=== PATIENT | male | born 1965 | race Caucasian/White ===

== ENCOUNTER 2021-09-28 12:45 | Outpatient (CLI) | payer OTHER | END 2021-09-28 12:46 | disposition home or self-care (01) | LOC: NUCLEAR 12:45 → EDSEX 12:45 → NUCLEAR 12:46 | PROVIDERS: ATTEND Urology | DX: C64.1 Malignant neoplasm of right kidney, except renal pelvis (principal) ==

== ENCOUNTER → 2021-10-30 07:15 | Outpatient (CLI) | payer OTHER | END | disposition home or self-care (01) | LOC: NUCLEAR 07:00 | PROVIDERS: ATTEND Urology | DX: I25.110 Atherosclerotic heart disease of native coronary artery with unstable angina pectoris (principal) | CPT/HCPCS: 78452; 93017; A9500 ==

== ENCOUNTER 2022-03-26 08:00 | Inpatient (IN) | payer OTHER ==
[~2022-03-26] VITALS: Ht 177.8 cm; Wt 96.6 kg
[2022-03-26] MEDS ORDERED: FELODIPINE ER5 MG (11:47)
[2022-03-26] MEDS ORDERED: ATORVASTATIN CA40 MG (11:47)
[2022-03-26] MEDS ORDERED: GLIMEPIRIDE2 M1 (11:47)
[2022-03-26] MEDS ORDERED: CHILDREN'S ASPI81 MG (11:47)
[2022-03-26] MEDS ORDERED: COZAAR100 MG (11:47)
[2022-03-26] MEDS ORDERED: ZYLOPRIM100 M1 (11:47)
[2022-03-30] MEDS ORDERED: METOPROLOL SUCC50 MG (08:16)
== END 2022-04-04 10:50 | disposition home or self-care (01) | DRG 658 ==
LOC: O/R 03-30 05:17 → SURG 03-30 05:17 → SURH 03-31 12:34
PROVIDERS: ADMIT Urology; ATTEND Urology
PROC: 0TB00ZZ Excision of Right Kidney, Open Approach (ICD-10-PCS; principal; 2022-03-31)
DX: C64.1 Malignant neoplasm of right kidney, except renal pelvis (principal); Z20.822 Contact with and (suspected) exposure to COVID-19; E11.9 Type 2 diabetes mellitus without complications; I10 Essential (primary) hypertension